=== PATIENT | female | born 1960 | race Caucasian/White ===

== ENCOUNTER → 2023-03-10 09:46 | Outpatient (CLI) | payer OTHER, SELFPAY ==
--- NOTE | ~2023-03-10 | MR_ITS ---
MRI of the left shoulder Technique: Axial proton-density fat-sat images, coronal proton density fat-sat and T2 fat-sat images, and sagittal T1-weighted and T2 fat-sat images were acquired. Clinical History: Pain Findings: There is mild AC joint degenerative change. No significant subacromial spur. Cortical clavi cular, coracoacromial, and coracohumeral ligaments are intact. There is complete, full-thickness tear involving the entire supraspinatus tendon which is retracted t o the level of glenoid. Fluid-filled gap measures approximately 3.6 x 2.6 cm in extent. Infraspinatus tendon is intact. Subscapularis tendon is intact. Tendon of the long head of the biceps is intact. No labral tear identified. Inferior glenohumeral ligament is intact. Small glenohumeral joint effusion is present with fluid pas sing through the rotator cuff defect into the subacromial/subdeltoid bursa. No muscle atrophy or rica a evident. No degenerative change at the glenohumeral joint. Impression: Complete, full-thickness tear of the entire supraspinatus tendon, as detailed above. Reviewed, dictated and finalized at location . Impression: Complete, full-thickness tear of the entire supraspinatus tendon, as detailed oscar laboy.
== END ==
PROVIDERS: PCP Family Medicine; Visit Provider Family Medicine
DX: M75.122 Complete rotator cuff tear or rupture of left shoulder, not specified as traumatic (principal)
CPT/HCPCS: 73221